=== PATIENT | female | born 1985 ===

== ENCOUNTER 2022-04-18 16:55 | Outpatient (CLI) | payer OTHER ==
[~2022-04-18] VITALS: Ht 167.6 cm; Wt 85.5 kg
[2022-04-18] MEDS ORDERED: PRENTAB9 PO (17:23)
[2022-04-18 17:24] VITALS: BP 114/74
== END 2022-04-18 18:05 | disposition home or self-care (01) ==
LOC: M LDO 16:55
PROVIDERS: ATTEND Obstetrics & Gynecology
DX: O47.1 False labor at or after 37 completed weeks of gestation (principal); Z3A.40 40 weeks gestation of pregnancy
CPT/HCPCS: 59025; G0463

== ENCOUNTER 2022-04-20 19:01 | Outpatient (CLI) ==
[~2022-04-20] VITALS: Ht 167.6 cm; Wt 85.9 kg
[~2022-04-20 19:01] MED LIST: PRENTAB9 PO
[2022-04-20 19:36] VITALS: BP 129/78
[2022-04-20] MEDS ORDERED: HOME MED LIST COMPLETE! XX SCH (19:55)
[2022-04-20 21:13] VITALS: BP 120/78
[2022-04-21] MEDS ORDERED: [UNRECOGNIZED DRUG - CODE] EX (15:21)
== END 2022-04-20 22:53 | disposition home or self-care (01) ==
LOC: M LDO 19:01
PROVIDERS: ATTEND Obstetrics & Gynecology
DX: O48.0 Post-term pregnancy (principal); Z3A.40 40 weeks gestation of pregnancy; Z79.899 Other long term (current) drug therapy
CPT/HCPCS: 59025; 76815; 76819; 76820; G0463

== ENCOUNTER 2022-04-21 13:48 | Inpatient (IN) | payer OTHER ==
[~2022-04-21] VITALS: Ht 167.6 cm; Wt 84.9 kg
[2022-04-21] MEDS ORDERED: HOME MED LIST COMPLETE! XX SCH (14:15)
[2022-04-21 14:18] VITALS: BP 114/72
[2022-04-21] MEDS ORDERED: [UNRECOGNIZED DRUG - CODE] EX (15:21)
[2022-04-21 16:24] LABS: HEMATOCRIT 37.3 % (36.0-47.0); HEMOGLOBIN 12.3 g/dl (12.0-15.5); MEAN CORPUSCULAR HEMOGLOBIN 32.9 pg (27.0-33.0); MEAN CORPUSCULAR VOLUME 99.7 fl (80.0-96.0); PLATELET COUNT, AUTOMATED 195 10^3/uL (150-450); RED BLOOD COUNT 3.74 10^6/uL (4.00-5.40); WHITE BLOOD COUNT 5.1 10^3/uL (4.0-10.0)
[2022-04-21] MEDS ORDERED: OXYTOCIN DRIP 30 UNITS in IV 1 EA IV PRN ×4 (16:25)
[2022-04-21] MEDS ORDERED: METHYLERGONOVINE MALEATE 0.2 MG/ML VIAL (J2210) IM PRN (16:25)
[2022-04-21] MEDS ORDERED: TRANEXAMIC ACID INJection 1,000 MG in NS 100 ML IV PRN (16:25)
[2022-04-21] MEDS ORDERED: LIDOCAINE 1% MDV 20ML VIAL INFIL PRN (16:25)
[2022-04-21] MEDS: miSOPROStol 25MCG 1/4 TABLET PO SCH ×2 (16:48→21:33)
[2022-04-21 18:12] VITALS: BP 102/66
[2022-04-21 21:05] VITALS: BP 114/67
[2022-04-21 23:31] VITALS: BP 97/58
[2022-04-22] VITALS (10 sets, daily range): BP systolic 90–112; BP diastolic 58–72
[2022-04-22] MEDS: LR 1,000 ML IV SCH ×2 (00:25→10:32)
[2022-04-22] MEDS: miSOPROStol 25MCG 1/4 TABLET PO SCH ×2 (02:07→06:06)
[2022-04-22] MEDS ORDERED: miSOPROStol 50MCG 1/2 TABLET PO ONE ×3 (10:20→21:45)
[2022-04-23] VITALS (13 sets, daily range): BP systolic 98–122; BP diastolic 55–77
[2022-04-23] MEDS ORDERED: OXYTOCIN DRIP 30 UNITS in IV 1 EA IV SCH (02:55)
[2022-04-23] MEDS: LR 1,000 ML IV SCH ×2 (03:24→08:29)
[2022-04-23] MEDS ORDERED: NALOXONE INJ 0.4MG/1ML VIAL (J2310 PER 1MG) IV PRN (07:45)
[2022-04-23] MEDS ORDERED: diphenhydrAMINE 50MG/ML VIAL (J1200) IV PRN (07:45)
[2022-04-23] MEDS ORDERED: FENTANYL/ROPIVACAINE/NACL BAG 100 ML EPIDURAL SCH (07:45)
[2022-04-23] MEDS ORDERED: EPIDURAL/PCA KEYS XX PRN (07:45)
[2022-04-23] MEDS ORDERED: ONDANSETRON 4MG 2ML VIAL IV PRN ×2 (07:45→09:40)
[2022-04-23] MEDS ORDERED: ePHEDrine SULFATE 25 MG/5 ML(5MG/ML) SYRINGE IVP PRN (07:45)
[2022-04-23] MEDS ORDERED: LR 500 ML IV PRN (07:45)
[2022-04-23] MEDS ORDERED: DIBUCAINE 1% OINTMENT 30GM TOP PRN (09:40)
[2022-04-23] MEDS ORDERED: RHOGAM 300 MCG (1500 IU) INJ (J2790) IM SCH (09:40)
[2022-04-23] MEDS ORDERED: LR 1,000 ML IV SCH (09:40)
[2022-04-23] MEDS ORDERED: ACETAMINOPHEN 500 MG TAB PO SCH (09:40)
[2022-04-23] MEDS ORDERED: IBUPROFEN 800 MG TAB PO SCH (09:40)
[2022-04-23] MEDS ORDERED: PROMETHAZINE 25 MG TAB PO PRN (09:40)
[2022-04-23] MEDS ORDERED: DOCUSATE SODIUM 100MG CAPSULE PO PRN (09:40)
[2022-04-23] MEDS ORDERED: METHYLERGONOVINE MALEATE 0.2 MG TAB PO PRN (09:40)
[2022-04-23] MEDS ORDERED: ACETAMINOPHEN 500 MG TAB PO PRN (09:45)
[2022-04-23 09:50] LABS: CORD GAS ABE V -1.7; CORD GAS HCO3 V 22.9 MEQ/L; CORD GAS PCO2 V 38.6 mmHg; CORD GAS PH V 7.391 UNITS; CORD GAS PO2 V 34.4 mmHg; CORD GAS SBC V 22.7 MEQ/L; CORD GAS TCO2 V 24.1 MEQ/L
[2022-04-23 09:52] LABS: CORD GAS ABE A -1.8; CORD GAS HCO3 A 25.8 MEQ/L; CORD GAS O2 SAT A 57.5 %; CORD GAS PCO2 A 55.3 mmHg; CORD GAS PH A 7.287 UNITS; CORD GAS PO2 A 24.2 mmHg; CORD GAS TCO2 A 27.5 MEQ/L
[2022-04-23] MEDS: PRENATAL VITAMINS CHEWABLE TABLET PO SCH (10:29)
[2022-04-23] MEDS: IBUPROFEN 600MG TAB PO PRN ×2 (10:29→20:24)
[2022-04-24 05:57] VITALS: BP 97/55
[2022-04-24] MEDS ORDERED: COLA100C5 PO (07:12)
[2022-04-24] MEDS ORDERED: ACET-683 PO (07:12)
[2022-04-24] MEDS ORDERED: IBUP-1022 PO (07:12)
[2022-04-24 07:22] LABS: HEMATOCRIT 35.1 % (36.0-47.0); HEMOGLOBIN 11.6 g/dl (12.0-15.5); MEAN CORPUSCULAR HEMOGLOBIN 32.5 pg (27.0-33.0); MEAN CORPUSCULAR VOLUME 98.3 fl (80.0-96.0); PLATELET COUNT, AUTOMATED 174 10^3/uL (150-450); RED BLOOD COUNT 3.57 10^6/uL (4.00-5.40); WHITE BLOOD COUNT 7.7 10^3/uL (4.0-10.0)
[2022-04-24] MEDS: PRENATAL VITAMINS CHEWABLE TABLET PO SCH (08:33)
[2022-04-24] MEDS ORDERED: PRENATAL VITAMINS CHEWABLE TABLET PO SCH (09:00)
[2022-04-25] MEDS ORDERED: MEASLES,MUMPS,RUBELLA VACCINE INJ (MMR-II) (90707) SC.IMMUN ONE (09:00)
== END 2022-04-24 18:20 | disposition home or self-care (01) | DRG 807 ==
LOC: M LDI 13:48 → M OBS 04-23 11:35
PROVIDERS: ADMIT Obstetrics & Gynecology; ATTEND Obstetrics & Gynecology
PROC: 3E0P7GC Introduction of Other Therapeutic Substance into Female Reproductive, Via Natural or Artificial Opening (ICD-10-PCS; 2022-04-21)
PROC: 10E0XZZ Delivery of Products of Conception, External Approach (ICD-10-PCS; principal; 2022-04-23)
PROC: 10907ZC Drainage of Amniotic Fluid, Therapeutic from Products of Conception, Via Natural or Artificial Opening (ICD-10-PCS; 2022-04-23)
DX: O69.81X0 Labor and delivery complicated by cord around neck, without compression, not applicable or unspecified (principal); Z37.0 Single live birth; Z3A.40 40 weeks gestation of pregnancy

== ENCOUNTER 2023-08-28 23:49 | Inpatient (IN) | payer OTHER ==
[~2023-08-28] VITALS: Ht 167.6 cm; Wt 89.9 kg
[~2023-08-28 23:49] MED LIST changes: +ACET-683 PO; +COLA100C5 PO; +IBUP-1022 PO; +[UNRECOGNIZED DRUG - CODE] EX
[2023-08-29] VITALS (7 sets, daily range): BP systolic 109–142; BP diastolic 66–86; O2SAT 98–100
[2023-08-29] MEDS ORDERED: OXYTOCIN INJ 10UNITS/ML 1ML VIAL IV PRN (01:00)
[2023-08-29] MEDS ORDERED: METHYLERGONOVINE MALEATE 0.2MG/ML 1ML VIAL IM PRN (01:00)
[2023-08-29] MEDS ORDERED: CARBOPROST TROMETHAMINE 250 MCG/ML AMP IM PRN (01:00)
[2023-08-29] MEDS ORDERED: OXYTOCIN DRIP 30 UNITS in IV 1 EA IV SCH (01:00)
[2023-08-29] MEDS ORDERED: LIDOCAINE 1% MDV 20ML VIAL INFIL PRN (01:00)
[2023-08-29] MEDS ORDERED: TRANEXAMIC ACID INJection 1,000 MG in NS 100 ML IV PRN (01:00)
[2023-08-29] MEDS ORDERED: LR 1,000 ML IV SCH ×2 (01:00)
[2023-08-29] MEDS ORDERED: OXYTOCIN DRIP 30 UNITS in IV 1 EA IV PRN ×6 (01:00)
[2023-08-29] MEDS ORDERED: OXYTOCIN INJ 10UNITS/ML 1ML VIAL IM PRN (01:00)
[2023-08-29] MEDS ORDERED: LACTATED RINGER'S 1000 ML IV STA (01:00)
[2023-08-29] MEDS ORDERED: miSOPROStol 50MCG 1/2 TABLET PO PRN (01:30)
[2023-08-29 02:15] LABS: HEMATOCRIT 35.2 % (36.0-47.0); HEMOGLOBIN 11.6 g/dl (12.0-15.5); MEAN CORPUSCULAR HEMOGLOBIN 32.9 pg (27.0-33.0); MEAN CORPUSCULAR VOLUME 99.7 fl (80.0-96.0); PLATELET COUNT, AUTOMATED 156 10^3/uL (150-450); RED BLOOD COUNT 3.53 10^6/uL (4.00-5.40); WHITE BLOOD COUNT 4.3 10^3/uL (4.0-10.0)
[2023-08-29] MEDS: PRENATAL VITAMINS CHEWABLE TABLET PO SCH (09:00)
[2023-08-29] MEDS ORDERED: ACETAMINOPHEN 500 MG TAB PO PRN (10:50)
[2023-08-29] MEDS ORDERED: IBUPROFEN 600MG TAB PO PRN (10:50)
[2023-08-29] MEDS ORDERED: METHYLERGONOVINE MALEATE 0.2 MG TAB PO PRN (10:50)
[2023-08-29] MEDS ORDERED: ACETAMINOPHEN TAB 650MG DOSE (2X325MG) PO PRN (10:50)
[2023-08-29] MEDS ORDERED: DOCUSATE SODIUM 100MG CAPSULE PO PRN (10:50)
[2023-08-29] MEDS ORDERED: DIBUCAINE 1% OINTMENT 30GM TOP PRN (10:50)
[2023-08-29] MEDS: IBUPROFEN 800 MG TAB PO PRN (11:39)
[2023-08-30] MEDS: IBUPROFEN 800 MG TAB PO PRN (01:14)
[2023-08-30 06:00] VITALS: BP 140/77; O2SAT 100
[2023-08-30 08:00] VITALS: BP 117/74; O2SAT 98
[2023-08-30] MEDS: PRENATAL VITAMINS CHEWABLE TABLET PO SCH (08:41)
[2023-08-30 09:17] LABS: HEMOGLOBIN 11.9 g/dl (12.0-15.5); MEAN CORPUSCULAR HEMOGLOBIN 32.1 pg (27.0-33.0); MEAN CORPUSCULAR HGB CONC 32.2 g/dl (32.0-36.5); MEAN CORPUSCULAR VOLUME 99.7 fl (80.0-96.0); PLATELET COUNT, AUTOMATED 161 10^3/uL (150-450); RED BLOOD COUNT 3.71 10^6/uL (4.00-5.40); WHITE BLOOD COUNT 5.9 10^3/uL (4.0-10.0)
[2023-08-30 09:49] LABS: ALBUMIN 2.5 G/DL (3.2-5.2); ALKALINE PHOSPHATASE 260 U/L (46-116); ALT/SGPT 20 U/L (7.0-40); AST/SGOT 22 U/L (<34); BILIRUBIN,TOTAL 0.7 MG/DL (0.3-1.2); BLOOD UREA NITROGEN 10 MG/DL (9-23); CALCIUM LEVEL 9.1 MG/DL (8.5-10.1); CARBON DIOXIDE LEVEL 25 MMOL/L (20-31); CHLORIDE LEVEL 108 MMOL/L (98-107); CREATININE FOR GFR 0.57 MG/DL (0.55-1.30); GLOMERULAR FILTRATION RATE > 60.0 (>60); GLUCOSE, FASTING 93 MG/DL (60-100); POTASSIUM SERUM 3.9 MMOL/L (3.5-5.1); SODIUM LEVEL 141 MMOL/L (136-145); TOTAL PROTEIN 5.6 G/DL (5.7-8.2)
[2023-08-30 11:21] LABS: CREATININE,RANDOM URINE 60.2 MG/DL
[2023-08-30 11:22] LABS: TOTAL PROTEIN,RANDOM URINE < 6.0 MG/DL (0.0-14.0)
[2023-08-31] MEDS ORDERED: MEASLES,MUMPS,RUBELLA VACCINE INJ (MMR-II) SC.IMMUN ONE (09:00)
== END 2023-08-30 16:20 | disposition home or self-care (01) | DRG 807 ==
LOC: M LDO 23:49 → M LDI 08-29 01:01 → M OBS 08-29 10:44
PROVIDERS: ADMIT Obstetrics & Gynecology; ATTEND Advanced Practice Midwife
PROC: 10E0XZZ Delivery of Products of Conception, External Approach (ICD-10-PCS; principal; 2023-08-29)
PROC: 3E0P7GC Introduction of Other Therapeutic Substance into Female Reproductive, Via Natural or Artificial Opening (ICD-10-PCS; 2023-08-29)
PROC: 10907ZC Drainage of Amniotic Fluid, Therapeutic from Products of Conception, Via Natural or Artificial Opening (ICD-10-PCS; 2023-08-29)
DX: O36.8330 Maternal care for abnormalities of the fetal heart rate or rhythm, third trimester, not applicable or unspecified (principal); Z37.0 Single live birth; O48.0 Post-term pregnancy; Z3A.40 40 weeks gestation of pregnancy; O66.0 Obstructed labor due to shoulder dystocia; O69.81X0 Labor and delivery complicated by cord around neck, without compression, not applicable or unspecified; O13.4 Gestational [pregnancy-induced] hypertension without significant proteinuria, complicating childbirth